=== PATIENT | male | born 1980 | race African-American/Black ===

== ENCOUNTER 2024-06-11 18:33 | Emergency (ER) | payer MEDICAID ==
[~2024-06-11] VITALS: Ht 167.6 cm; Wt 99.4 kg
[2024-06-11 19:36] VITALS: BP 120/87; PULSE 91; RESP 18; TEMP 99.4; O2SAT 97
--- NOTE | 2024-06-11 20:51 | ED.PDOC ---
General HPI Comments THIS IS 43-YEAR-OLD MALE PRESENTS TO THE ED CHIEF COMPLAINT PENILE PAIN. X2 DAYS OVER THE PAST 24 HOURS HAVE WORSENED. PAIN STARTS UP TOWARDS THE SHAFT OF THE PENIS RADIATES INTO HIS TESTICLES AND DOWN INTO HIS PERINEUM AND ANUS AREA. PATIENT STATES POSSIBLE EXPOSURE TO AN STD. DENIES ANY INJURY. DENIES ANY FEVERS, CHILLS, DIFFICULTY URINATING, OR PURULENT DRAINAGE. Chief Complaint: Penile Problem Time Seen by MD: 19:00 Primary Care Provider: DENIES Reviewed notes: Nurses Notes, Medications, Allergies Allergies: Coded Allergies: NO KNOWN ALLERGIES (Unverified , 11/28/11) Information Source: Patient Mode of Arrival: Ambulatory Past Medical History PAST MEDICAL HISTORY: Denies Surgical History: Denies all surgeries Family History Family History: Unknown Social History Smoker: Non-Smoker Alcohol: Denies ETOH Use Drugs: Denies Drug Use Lives In: Home Constitutional: denies: chills, diaphoresis, fatigue, fever, malaise, sweats, weakness, others EENTM: denies: blurred vision, double vision, ear bleeding, ear discharge, ear drainage, ear pain, ear ringing, eye pain, eye redness, hearing loss, mouth pain, mouth swelling, nasal discharge, nose bleeding, nose congestion, nose pain, photophobia, tearing, throat pain, throat swelling, voice changes, others Respiratory: denies: cough, hemoptysis, orthopnea, SOB at rest, shortness of breath, SOB with excertion, stridor, wheezing, others Cardiovascular: denies: chest pain, dizzy spells, diaphoresis, Dyspnea on exertion, edema, irregular heart beat, left arm pain, lightheadedness, palpi tations, PND, syncope, others Gastrointestinal: denies: abdomen distended, abdominal pain, blood streaked bowels, constipated, diarrhea, dysphagia, difficulty swallowing, hematemesis, melena, nausea, poor appetite, poor fluid intake, rectal bleeding, rectal pain, vomiting, others Genitourinary: reports: pain (PENI, PERINEUM AND ANAL AREA); denies: burning, dysuria, flank pain, frequency, hematuria, incontinence, penile discharge, penile sore, testicle pain, testicle swelling, urgency, others Neurological: denies: dizziness, fainting, headache, left sided numbness, left sided weakness, numbness, paresthesia, pre-existing deficit, right sided numbness, right sided weakness, seizure, speech problems, tingling, tremors, weakness, others Musculoskeletal: denies: back pain, gout, joint pain, joint swelling, muscle pain, muscle stiffness, neck pain, others Integumetry: denies: bruises, change in color, change in hair/nails, dryness, laceration, lesions, lumps, rash, wounds, others Allergic/Immunocompromised: denies: Difficulty Healing, Frequent Infections, Hives, Itching, others Hematologic/Lymphatic: denies: anemia, blood clots, easy bleeding, easy bruising, swollen glands, others Endocrine: denies: excessive hunger, excessive sweating, excessive thirst, excessive urination, flushing, intolerance to cold, intolerance to heat, unexplained weight gain, unexplained weight loss, others Psychiatric: denies: anxiety, bipolar disorder, depression, hopeless, panic disorder, schizophrenia, sleepless, suicidal, others Physical Exam General Appearance: No Apparent Distress, Normal HEENT: Pharynx Normal Neck: Full Range of Motion, Non-Tender Respiratory: Lungs Clear, No Respiratory Distress, Normal Breath Sounds Cardiovascular: No Murmur, Normal Peripheral Pulses, Regular Rate/Rhythm Breast Exam: Deferred Gastrointestinal: No Organomegaly, Non Tender, No Pulsatile Mass, Normal Bowel Sounds, Soft Genitalia: Penis (NO NOTED LESIONS. NO NOTED DRAINAGE. LESIONS, ABSCESSES OR VISION WE WILL EYES EXTERNAL HEMORRHOIDS THE ANUS AREA. TESTICLES WITHOUT EDEMA, OR ERYTHEMA, OR TENDERNESS.), Deferred Pelvic: Deferred Rectal: Deferred Extremities: No calf tenderness, Normal capillary refill, Normal inspection, Normal range of motion, Non-tender, No pedal edema Musculoskeletal : Apperance: Normal Neurologic: Alert, spout liner helper II-XII nml as Tested, No Motor Deficits, Normal Affect, Normal Mood, No Sensory Deficits Cerebellar Function: Normal Reflexes: Normal Skin: Dry, Normal Color, Warm Lymphatic: No Adenopathy Was a procedure done? Was a procedure done?: No Differential Diagnosis Kidney stone (Female): N/A Penile/Scrotal: Epidiymitis, Prostatitis, Fractured Penis, Phimosis, Hydrocele, Testicular Torsion, Urolithiasis, Urinary Retention X-Ray, Labs, Meds, VS Vital Signs Date Time Temp Pulse Resp B/P (MAP) Pulse Ox O2 Delivery O2 Flow Rate FiO2 06/11/24 19:36 99.4 91 18 120/87 (98) 97 99.4 06/11/24 18:51 99.4 91 18 120/87 (98) 97 99.4 Current Medications Medications (Trade) Dose Ordered Sig/Joey Route Start Time Stop Time Status Last Admin Ceftriaxone Sodium (Rocephin) 1,000 mg ONCE ONCE IM 06/11/24 20:45 06/11/24 20:46 DC 06/11/24 21:04 Azithromycin (Zithromax Tablet) 1,000 mg ONCE ONCE PO 06/11/24 20:45 06/11/24 20:46 DC 06/11/24 21:09 X-Ray, Labs, Meds, VS Comment PATIENT TREATED PROPHYLACTICALLY FOR POSSIBLE EXPOSURE TO STD. IM AND AZITHROMY JOSE [address] ADVISED PATIENT TO FOLLOW UP WITH [facility] IF SYMPTOMS PERSIST CONSIDER TESTING. ADVISED HIM NO SEX WITH AT LEAST FOR 7 DAYS AND HAVE THE OTHER POSSIBLE PARTNER TREATED WELL. ADVISED ON ER RETURN PRECAUTIONS PATIENT INDICATES UNDERSTANDING AND AGREES WITH DISCHARGE PLAN OF CARE Time of 1ST Reevaluation: 20:50 Reevaluation 1ST: Improved Patient Education/Counseling: Diagnosis, Treatment, Prognosis, Need For Follow Up Family Education/Counseling: No Family Present Departure 1 Departure Time of Disposition: 20:50 Impression: Primary Impression: Possible exposure to STD Disposition: 01 HOME / SELF CARE / HOMELESS Condition: Stable Discharged With: Self Critical Care Note Critical Care Time?: No Stability Stability form required: MIRA Reese Jun 11, 2024 20:51
[2024-06-11] MEDS: cefTRIAXone SOD 1,000 MG VL IM ONE (21:04)
[2024-06-11] MEDS: AZITHROMYCIN 250 MG TAB PO ONE (21:09)
== END 2024-06-11 21:19 | disposition home or self-care (01) ==
LOC: ER 18:33
DX: N48.89 Other specified disorders of penis (principal); Z20.2 Contact with and (suspected) exposure to infections with a predominantly sexual mode of transmission
CPT/HCPCS: 96372; 99283; J0696